=== PATIENT | male | born 1985 | race Two or more races ===

== ENCOUNTER 2016-12-24 15:21 | Emergency (ER) | payer SELFPAY ==
[~2016-12-24] VITALS: Ht 165.1 cm; Wt 127.0 kg
[2016-12-24 15:50] VITALS: BP 119/77
[2016-12-24] MEDS ORDERED: KETOROLAC TROMETH 60MG/2ML VIAL IM ONE (16:15)
== END 2016-12-24 17:05 | disposition home or self-care (01) ==
LOC: ER 15:27
DX: S46.912A Strain of unspecified muscle, fascia and tendon at shoulder and upper arm level, left arm, initial encounter (principal); S16.1XXA Strain of muscle, fascia and tendon at neck level, initial encounter; V43.52XA Car driver injured in collision with other type car in traffic accident, initial encounter; Y93.89 Activity, other specified; Y92.410 Unspecified street and highway as the place of occurrence of the external cause; Y99.8 Other external cause status
CPT/HCPCS: 96372; 99283; J1885

== ENCOUNTER 2024-07-04 08:52 | Emergency (ER) | payer MEDICAID ==
[~2024-07-04] VITALS: Ht 170.2 cm; Wt 87.1 kg
--- NOTE | 2024-07-04 10:16 | DVH ---
XY R ELBOW 3 VIEW XRAY, INDICATION: Unable to bend the elbow. [place] a pop. Rule out dislocatio TECHNICAL DATA: Frontal, oblique and lateral views were obtained of the right elbow. COMPARISON: None FINDINGS: No fracture is identified. Joint spaces are maintained. Alignment at the joint is anatomic. Soft tiss ues are within normal limits. Small joint effusion is demonstrated. IMPRESSION: Small joint effusion is demonstrated. No acute fracture or dislocation of the right elbow.
[2024-07-04 10:24] VITALS: BP 139/91; PULSE 92; RESP 16; TEMP 98; O2SAT 97
--- NOTE | 2024-07-04 10:51 | ED.PDOC ---
Musculoskeletal HPI Comments This is a pleasant 39-year-old male with no MHx who is left-hand dominant that presents with a chief complaint of localized nonradiating right epicondyle pain Possible cause: Injury that occurred three weeks ago while lifting a rim. Reports he heard a sudden pop to the elbow and states pain waxes and wanes since with no specific pattern This morning patient noticed significant swelling and pain to the elbow which prompted the patient to the emergency department. Has not taken medication for the symptoms listed above. Pain is aggravated with flexion-extension of the elbow. Denies pain to the shoulder wrist hands No history of diabetes HIV hepatitis Denies any IV drug use Chief Complaint: Upper Extremity Time Seen by MD: 09:44 Primary Care Provider: NONE Reviewed Notes: Nurses Notes, Medications, Allergies Allergies: Coded Allergies: NO KNOWN ALLERGIES (Unverified , 12/24/16) Information Source: Patient Mode of Arrival: Ambulatory Past Medical History PAST MEDICAL HISTORY: Denies Surgical History: Denies all surgeries Family History Family History: Unknown Social History Smoker: Non-Smoker Lives In: Home All Other Systems: Reviewed and Negative (Per HPI) Physical Exam General Appearance: No Apparent Distress, Normal HEENT: Normal ENT Inspection, Pharynx Normal, TMs Normal Neck: Full Range of Motion, Non-Tender, Normal, Normal Inspection Respiratory: Chest Non-Tender, Lungs Clear, No Accessory Muscle Use, No Respiratory Distress, Normal Breath Sounds Cardiovascular: No Edema, No JVD, No Murmur, No Gallop, Normal Peripheral Pulses, Regular Rate/Rhythm Breast Exam: Deferred Gastrointestinal: No Organomegaly, Non Tender, No Pulsatile Mass, Normal Bowel Sounds, Soft Genitalia: Deferred Pelvic: Deferred Rectal: Deferred Extremities: No calf tenderness, Normal capillary refill, Normal inspection, Normal range of motion, Non-tender, No pedal edema Musculoskeletal : Location: Right Extremity Location: Elbow (Mild swelling to the epicondyle. No erythema noted. No contusion. No ecchymosis. No other gross abnormalities noted on inspection. Focal warmth to touch over the olecranon. Pain with flexion- extension of the elbow. Distal sensation intact. Radial pulses 2+. Cap refill less than 3 seconds. No pain to the shoulder wrists and hands) Apperance: Normal Neurologic: Alert, dental surgery doctor II-XII nml as Tested, No Motor Deficits, Normal Affect, Normal Mood, No Sensory Deficits Cerebellar Function: Normal Reflexes: Normal Skin: Dry, Normal Color, Warm Lymphatic: No Adenopathy Was a procedure done? Was a procedure done?: No Differential Diagnosis EXT Differential Diagnosis: Cellulitis, Fracture, Sprain, Dislocation, Arthritis, Bursitis, Other X-Ray, Labs, Meds, VS Vital Signs Date Time Temp Pulse Resp B/P (MAP) Pulse Ox O2 Delivery O2 Flow Rate FiO2 07/04/24 10:24 98.0 92 16 139/91 (107) 97 98.0 07/04/24 10:24 92 16 97 Room Air 07/04/24 09:22 98.0 92 16 139/91 (107) 97 98.0 Lab Test 07/04/24 11:00 Range/Units White Blood Count 10.5 4.4-10.8 10^3/uL Red Blood Count 5.53 4.5-5.90 10^6/uL Hemoglobin 16.1 13.5-17.5 g/dL Hematocrit 47.7 41.0-53.0 % Mean Corpuscular Volume 86.2 80.0-100.0 fL Mean Corpuscular Hemoglobin 29.2 28.0-32.0 pg Mean Corpuscular Hemoglobin Concent 33.9 32.0-36.0 g/dL Red Cell Distribution Width 13.0 11.8-14.3 % Platelet Count 238 140-450 10^3/uL Mean Platelet Volume 8.3 6.9-10.8 fL Neutrophils (%) (Auto) 75.7 37.0-80.0 % Lymphocytes (%) (Auto) 14.2 10.0-50.0 % Monocytes (%) (Auto) 9.1 0.0-12.0 % Eosinophils (%) (Auto) 0.5 0.0-7.0 % Basophils (%) (Auto) 0.5 0.0-2.0 % Neutrophils # (Auto) 8.0 1.6-8.6 10 ^3/uL Lymphocytes # (Auto) 1.5 0.4-5.4 10 ^3/uL Monocytes # (Auto) 1.0 0-1.3 10 ^3/uL Eosinophils # (Auto) 0.1 0-0.8 10 ^3/uL Basophils # (Auto) 0 0-0.2 10 ^3/uL Nucleated Red Blood Cells 0.1 % Erythrocyte Sedimentation Rate 8 0-20 mm/hr Sodium Level 136 136-145 mmol/L Potassium Level 4.0 3.5-5.1 mmol/L Chloride Level 101 98-107 mmol/L Carbon Dioxide Level 28 20-31 mmol/L Anion Gap 7 5-15 Blood Urea Nitrogen 13 9-23 mg/dL Creatinine 0.84 0.700-1.30 mg/dL Glomerular Filtration Rate Calc 112 >90 mL/min BUN/Creatinine Ratio 15.5 10.0-20.0 Serum Glucose 316 H 74-106 mg/dL Uric Acid 6.6 3.7-9.2 mg/dL Calcium Level 9.0 8.7-10.4 mg/dL C-Reactive Protein High Sensitivity 0.37 <1.0 mg/dL Current Medications Medications (Trade) Dose Ordered Sig/Jose Route Start Time Stop Time Status Last Admin Acetaminophen/ Hydrocodone Bitart ([place] 5/325MG Tab) 1 tab ONCE ONCE PO 07/04/24 11:00 07/04/24 11:01 DC 07/04/24 11:08 PATIENT: SHERMAN TALAVERA MACCT: [id number]: [id number] : 1985 LOC: ER ROOM / BED: / AGE / SEX: 39 / M ADM STATUS: REG ER SERVICE [id number] ORDERING PHYSICIAN: DAYLIN PATTERSON NP PROCEDURE(s): RELB3 - R ELBOW 3 VIEW XRAY REASON: Unable to bend the elbow. [place] a pop. Rule out dislocatio ORDER NUMBER(s): [id number], ACCESSION NUMBER(s): [id number] XY R ELBOW 3 VIEW XRAY, INDICATION: Unable to bend the elbow. [place] a pop. Rule out dislocatio TECHNICAL DATA: Frontal, oblique and lateral views were obtained of the right elbow. COMPARISON: None FINDINGS: No fracture is identified. Joint spaces are maintained. Alignment at the joint is anatomic. Soft tissues are within normal limits. Small joint effusion is demonstrated. IMPRESSION: Small joint effusion is demonstrated. No acute fracture or dislocation of the right elbow. ATED BY: RODNEY SEGUNDO MD DICTATED DATE/TIME: 07/04/24 1014 SIGNED BY: RODNEY SEGUNDO MD SIGNED DATE/TIME: 07/04/24 1014 CC: X-Ray, Labs, Meds, VS Comment This is a pleasant 39-year-old male with no MHx who is left-hand dominant that presents with a chief complaint of localized nonradiating right epicondyle pain Patient arrives alert and oriented, ABC's intact, afebrile, vital signs stable, saturating well in room air CBC was ordered to exclude anemia, blood loss, or infection. BMP was ordered to exclude electrolyte abnormalities, renal failure, dehydration, hyperglycemia. Uric acid negative for gout Radiology results interpreted by radiology and reviewed by me Findings are consistent with olecranon bursitis Conservative treatment was recommended Rice NSAIDs as needed for pain Additional MDM Review of External, Non-ED records: External records reviewed. Discussion with independent historian (EMS, family) history obtained from the patient at bedside Chronic conditions affecting care: none Social determinants of health affecting care: none Consideration of admission (observation or admission): I considered escalation of care to admission for this patient, however given the reassuring workup, the patient is safe for outpatient management. Time of 1ST Reevaluation: 10:51 Reevaluation 1ST: Improved Patient Education/Counseling: Diagnosis, Treatment Family Education/Counseling: Diagnosis, Treatment Departure 1 Departure Time of Disposition: 12:39 Impression: Primary Impression: Olecranon bursitis, right elbow Additional Impression: Hyperglycemia Disposition: HOME / SELF CARE / HOMELESS Condition: Stable e-Prescriptions Acetaminophen (Acetaminophen) 500 Mg Tab 500 MG PO Q6HP PRN for 7 Days, #28 TAB 0 Refills Prov: DAYLIN PATTERSON NP 07/04/24 Tramadol Hcl (Tramadol Hcl) 50 Mg Tab 50 MG PO Q8HP PRN for 5 Days, #15 TAB 0 Refills Prov: DAYLIN PATTERSON NP 07/04/24 Discharged With: Self Critical Care Note Critical Care Time?: No Stability Stability form required: No Heart Score Heart Score: Heart Score Response (Comments) Value History N/A 0 EKG N/A 0 Age N/A 0 Risk Factors N/A 0 Troponin N/A 0 Total 0 DAYLIN PATTERSON NP July 04, 2024 10:51
[2024-07-04] MEDS: HYDROcodone-ACET 5/325MG TAB PO ONE (11:08)
[2024-07-04] MEDS: KETOROLAC TROMETH 30 MG/ML 1ML VIAL IM ONE (11:09)
[2024-07-04 11:19] LABS: Basophils # (auto) 0 10 ^3/uL (0-0.2); Basophils % (auto) 0.5 % (0.0-2.0); Eosinophils # (auto) 0.1 10 ^3/uL (0-0.8); Eosinophils % (auto) 0.5 % (0.0-7.0); Hematocrit 47.7 % (41.0-53.0); Hemoglobin 16.1 g/dL (13.5-17.5); Lymphocytes # (auto) 1.5 10 ^3/uL (0.4-5.4); Lymphocytes % (auto) 14.2 % (10.0-50.0); Mean Corpuscular Hemoglobin 29.2 pg (28.0-32.0); Mean Corpuscular Hgb Conc. 33.9 g/dL (32.0-36.0); Mean Corpuscular Volume 86.2 fL (80.0-100.0); Monocytes % (auto) 9.1 % (0.0-12.0); Neutrophils % (auto) 75.7 % (37.0-80.0); Nucleated Red Blood Cells % 0.1 %; Platelet Count (auto) 238 10^3/uL (140-450); Red Blood Cells 5.53 10^6/uL (4.5-5.90); White Blood Cell 10.5 10^3/uL (4.4-10.8)
[2024-07-04 11:23] LABS: Anion Gap 7 (5-15); Carbon Dioxide 28 mmol/L (20-31); Chloride 101 mmol/L (98-107); Sodium 136 mmol/L (136-145)
[2024-07-04 11:28] LABS: Uric Acid 6.6 mg/dL (3.7-9.2)
[2024-07-04 11:29] LABS: BUN/Creatinine Ratio 15.5 (10.0-20.0); Blood Urea Nitrogen 13 mg/dL (9-23); Glucose 316 mg/dL (74-106)
[2024-07-04 11:39] LABS: CRP High Sensitivity 0.37 mg/dL (<1.0)
[2024-07-04 12:30] LABS: Erythrocyte Sedimentation Rate 8 mm/hr (0-20)
[2024-07-04] MEDS ORDERED: TRAM50TA2 PO (12:41)
[2024-07-04] MEDS ORDERED: ACET500T58 PO (12:41)
== END 2024-07-04 13:04 | disposition home or self-care (01) ==
LOC: ER 08:52
DX: M70.21 Olecranon bursitis, right elbow (principal); R73.9 Hyperglycemia, unspecified; E66.9 Obesity, unspecified; Z68.30 Body mass index [BMI] 30.0-30.9, adult; Y93.89 Activity, other specified
CPT/HCPCS: 36415; 73080; 80048; 84550; 85025; 85652; 86141; 99284; J1885